=== PATIENT | female | born 1975 | race Caucasian/White ===

== ENCOUNTER 2021-05-10 06:48 | Day surgery (SDC) | payer OTHER, SELFPAY ==
[~2021-05-10] VITALS: Ht 154.9 cm; Wt 98.4 kg
[2021-05-10] MEDS ORDERED: MIDAZOLAM 5 MG/5 ML VIAL ONE (09:13)
[2021-05-10] MEDS ORDERED: fentaNYL citrate 0.05 MG/ML VIAL ONE (09:13)
[2021-05-10] MEDS ORDERED: LIDOCAINE 2% 100 MG/5 ML UJET TP ONE ×2 (09:14→09:40)
[2021-05-10] MEDS ORDERED: fentaNYL citrate 0.05 MG/ML VIAL IVP ONE (09:40)
[2021-05-10] MEDS ORDERED: MIDAZOLAM 2 MG/2 ML VIAL IVP ONE (09:40)
== END 2021-05-10 10:30 | disposition home or self-care (01) ==
LOC: MDS 06:48 → MMU 06:49 → MDS 10:30
PROVIDERS: ATTEND Internal Medicine Gastroenterology
DX: Z12.11 Encounter for screening for malignant neoplasm of colon (principal); K57.30 Diverticulosis of large intestine without perforation or abscess without bleeding; K29.70 Gastritis, unspecified, without bleeding; I10 Essential (primary) hypertension; E11.9 Type 2 diabetes mellitus without complications; Z79.899 Other long term (current) drug therapy; Z20.822 Contact with and (suspected) exposure to COVID-19
CPT/HCPCS: 36415; 43239; 45378; 81025; 86677; 87426; J2250; J3010